=== PATIENT | male | born 1945 | race Caucasian/White ===

== ENCOUNTER → 2018-07-05 08:00 | Outpatient (CLI) | payer MEDICARE, SELFPAY | DX: Z23 Encounter for immunization (principal) | CPT/HCPCS: 90471; 90662 ==

== ENCOUNTER → 2018-10-03 11:33 | Outpatient (CLI) | payer MEDICARE, SELFPAY ==
[2018-10-03 12:44] LABS: Alanine Aminotransferase 43 IU/L (21-72); Albumin 4.5 g/dL (3.5-5.0); Albumin Globulin Ratio 1.5 (1.0-2.8); Alkaline Phosphatase 71 U/L (38-126); Aspartate Aminotransferase 33 IU/L (17-59); BUN Creatinine Ratio 27.5 (6-22); Bilirubin Total 0.5 mg/dL (0.2-1.3); Blood Urea Nitrogen 22 mg/dL (9-20); Calcium 9.4 mg/dL (8.4-10.2); Carbon Dioxide 27 mmol/L (22-32); Chloride 105 mmol/L (98-107); Cholesterol 177 mg/dL (140-199); Estimated Glomerular Filt Rate > 60.0 mL/min (>60); Glucose 104 mg/dL (80-110); HDL Cholesterol 73 mg/dL (40-60); HEMOLYSIS < 15 (0-50); LDL Cholesterol Calculated 94 mg/dL (<100); Potassium 4.6 mmol/L (3.4-5.1); Sodium 142 mmol/L (137-145); Total Protein 7.5 g/dL (6.3-8.2); Triglycerides 52 mg/dL (35-150)
[2018-10-03 12:46] LABS: Hemoglobin 15.9 g/dL (13.5-17.5); Mean Corpuscular HGB Conc 33.9 % (30-36); Mean Corpuscular Hemoglobin 31.7 PG (26-34); Mean Corpuscular Volume 93.7 fL (80-100); Platelet Count 216 X10^3/uL (150-400); Red Blood Cell Count 5.01 X10^6/uL (4.5-5.9); Red Cell Distribution Width 13.2 % (11.6-14.8); White Blood Cell Count 6.4 X10^3/uL (4.5-11.0)
[2018-10-03 12:59] LABS: Neutrophils Absolute Manual 4352 /uL (3000-5900); Total Cells Counted 100
[2018-10-03 13:00] LABS: RBC Morphology Normal Morphology
[2018-10-03 13:14] LABS: TSH w/ Reflex to FT4 1.71 uIU/mL (0.47-4.68)
== END ==
PROVIDERS: PCP Family Medicine; Visit Provider Family Medicine
DX: E78.5 Hyperlipidemia, unspecified (principal); R97.20 Elevated prostate specific antigen [PSA]
CPT/HCPCS: 36415; 80053; 80061; 84153; 84443; 85025

== ENCOUNTER → 2019-07-25 11:25 | Outpatient (CLI) | payer MEDICARE, SELFPAY | PROVIDERS: PCP Family Medicine | DX: Z23 Encounter for immunization (principal) | CPT/HCPCS: 90471; 90662 ==

== ENCOUNTER → 2019-08-29 14:44 | Outpatient (CLI) | payer MEDICARE, SELFPAY ==
--- NOTE | 2019-08-29 14:46 | DI.ECHO.S_ITS ---
[place] [facility] +---------+ : : [address] : : : : [id number] : : : : Phone: [phone]+ Echocardiogram Report + + :Name: DAKOTA SINGH Study Date: 08/29/2019 Height: 70 in : :[facility] Weight: 170 lb : : Gender: Male BSA: 1.9 m2 : :: 1945 Age: 74 yrs BP: 124/82 mmHg: :Reason For Study: AFIB : : Performed By: [facility] Staff : :Referring: LELIA BISWAS : + + Interpretation Summary Normal sinus rhythm. Normal LV size, wall thickness, wall motion and LV systolic function. EF is 60-65%. Normal chamber sizes. No significant valvular abnormalities. No prior study available for comparison. Procedure: A two-dimensional transthoracic echocardiogram with color flow and Doppler was performed. The study quality was technically good. Prior echo performed on 10/15/06. The patient was in normal sinus rhythm during the exam. Left Ventricle: The left ventricle is normal in size. There is normal left ventricular wall thickness. Left ventricular systolic function is normal. The ejection fraction is estimated to be 60-65%. Left ventricular wall motion is normal. Right Ventricle: The right ventricle is normal in size and function. Atria: The left atrial size is normal. Right atrial size is normal. The interatrial septum is intact with no evidence for an atrial septal defect. Mitral Valve: The mitral valve leaflets appear mildly thickened, but open well. There is trace mitral regurgitation. Aortic Valve: The aortic valve is trileaflet. The aortic valve opens well. No aortic regurgitation is present. Tricuspid Valve: The tricuspid valve is normal in structure and function. There is trace tricuspid regurgitation. The right ventricular systolic pressure is estimated to be at least 27 mmHg based on an estimated right atrial pressure of 3 mm Hg. Pulmonic Valve: The pulmonic valve is normal in structure and function. There is trace pulmonic regurgitation. Great Vessels: The aortic root is normal size. The ascending aorta could not be visualized. The pulmonary artery is normal size. The IVC is of normal diameter and collapses greater than 50% with a sniff. This suggests a low right atrial pressure of 3 mm Hg. Pericardium/ Pleura There is no pericardial effusion. There is no pleural effusion. MMode/2D Measurements & Calculations LVIDd: 4.7 cm LVOT diam: 2.1 cm LVIDs: 2.9 cm Ao root diam: 3.0 cm FS: 38.4 % Aortic Jxn: 3.1 cm EPSS: 0.43 cm IVSd: 1.0 cm LVPWd: 1.1 cm LV atwood. diameter/BSA (cm/m^2): 2.4 LV sys. diameter/BSA (cm/m^2): 1.5 LA A2 area: 17.4 cm2 RA long axis: 5.1 cm LA A4 area: 19.3 cm2 RA area: 12.6 cm2 LA length (vol): 4.8 cm RA vol: 26.7 ml LA vol: 58.8 ml RA : 13.7 ml/m2 LA vol index: 30.2 ml/m2 TAPSE: 2.4 cm Doppler Measurements & Calculations Ao V2 max: 119.5 cm/sec LVOT Max Tong: 95.5 cm/sec Ao V2 mean: 80.5 cm/sec LV V1 max P.7 mmHg Ao max P.7 mmHg LV V1 VTI: 22.4 cm Ao mean P.0 mmHg ANN(I,D): 3.1 cm2 Ao V2 VTI: 25.4 cm ANN(V,D): 2.8 cm2 sev ratio: 0.88 ANN indexed to BSA (cm^2/m^2): 1.6 MV E max tong: 72.5 cm/sec TR max tong: 242.8 cm/sec MV A max tong: 65.6 cm/sec TR max P.6 mmHg MV E/A: 1.1 PA V2 max: 75.0 cm/sec Med Peak E' Tong: 6.4 cm/sec PA V2 mean: 49.2 cm/sec E/E' med: 11.3 PA mean P.1 mmHg Lat Peak E' Tong: 8.2 cm/sec PA Accel Time: 0.09 sec E/E' lat: 8.8 E/e' average: 10.1 MV dec time: 0.21 sec SV(LVOT): 79.4 ml Electronically signed by: Anju Aguirre M.D. on Reading Physician:08/29/2019 06:16 PM
== END ==
PROVIDERS: PCP Family Medicine; Visit Provider Family Medicine
DX: I48.0 Paroxysmal atrial fibrillation (principal); I10 Essential (primary) hypertension
CPT/HCPCS: 93306

== ENCOUNTER → 2019-10-31 13:05 | Outpatient (CLI) | payer MEDICARE, SELFPAY ==
[2019-10-31 13:24] LABS: Add Manual Diff / Slide Review NO; Basophils Absolute Auto 0 /uL (0-100); Basophils Percent Auto 0.3 % (0-2); Eosinophils Absolute Auto 100 /uL (0-450); Eosinophils Percent Auto 1.1 % (2-4); Hematocrit 49.8 % (41-53); Hemoglobin 17.1 g/dL (13.5-17.5); Lymphocytes Absolute Auto 3000 /uL (1100-4500); Lymphocytes Percent Auto 22.4 % (25-40); Mean Corpuscular HGB Conc 34.2 % (30-36); Mean Corpuscular Volume 93.4 fL (80-100); Monocytes Absolute Auto 1400 /uL (0-900); Monocytes Percent Auto 10.5 % (3-14); Neutrophils Absolute Auto 8800 /uL (1500-7000); Neutrophils Percent Auto 65.7 % (50-75); Platelet Count 245 X10^3/uL (150-400); Red Blood Cell Count 5.33 X10^6/uL (4.5-5.9); Red Cell Distribution Width 13.8 % (11.6-14.8); White Blood Cell Count 13.4 X10^3/uL (4.5-11.0)
[2019-10-31 13:35] LABS: BUN Creatinine Ratio 32.2 (6-22); Blood Urea Nitrogen 29 mg/dL (9-20); Calcium 9.4 mg/dL (8.4-10.2); Carbon Dioxide 31 mmol/L (22-32); Chloride 99 mmol/L (98-107); Estimated Glomerular Filt Rate > 60.0 mL/min (>60); Glucose 97 mg/dL (80-110); HEMOLYSIS < 15 (0-50); Potassium 4.5 mmol/L (3.4-5.1); Sodium 138 mmol/L (137-145)
[2019-10-31 13:42] LABS: INR 3.3 (0.9-1.3); Prothrombin Time 37.7 SECONDS (10.1-12.7)
--- NOTE | 2019-10-31 13:54 | DI.CT.S_ITS ---
PROCEDURE: CT ANGIO CHEST INDICATIONS: Atrial fibrilliation/pre procedure exam for PVI TECHNIQUE: After the administration of intravenous contrast, 3 mm thick sections acquired from the pulmonary apices to the posterior costophrenic angles. 3-dimensional maximum intensity projection (MIP) coronal reformats were then acquired parallel to the pulmonary veins. For radiation dose reduction, the following was used: automated exposure control, adjustment of mA and/or kV according to patient size. COMPARISON: None. FINDINGS: Image quality: Excellent. Pulmonary veins: 4 total pulmonary veins are identified. * Right superior pulmonary vein: 1.5 cm diameter, 2.4 cm from ostium to 1st order branch. * Right inferior pulmonary vein: 1.2 cm diameter, 2.9 cm from ostium to 1st order branch. * Left superior pulmonary vein: 2.1 cm diameter, 3.8 cm from ostium to 1st order branch. * Left inferior pulmonary vein: 1.2 cm diameter, 2.9 cm from ostium to 1st order branch. * Supernumerary pulmonary veins: none. Lungs and pleura: Lungs are clear. No pleural effusions or pneumothorax. Central and peripheral airways are patent. Mediastinum: Heart size is normal, without pericardial effusion. No mediastinal or hilar adenopathy. Thoracic aorta and pulmonary arteries are normal in caliber and enhancement. Esophagus is normal in caliber, without hiatal hernia. Bones and chest wall: No suspicious bony lesions. Ribs and thoracic spine appear intact throughout. No axillary or supraclavicular adenopathy. Thyroid gland appears normal where well seen. Abdomen: Visualized upper abdominal solid organs appear normal in the early arterial phase of enhancement. IMPRESSION: Appears normal Dictated by: Donny Valle M.D. on 10/31/2019 at 15:11 Approved by: Donny Valle M.D. on 10/31/2019 at 15:33
== END ==
PROVIDERS: PCP Family Medicine; Referring Provider Family Medicine; Visit Provider Family Medicine
DX: Z01.818 Encounter for other preprocedural examination (principal); Z01.812 Encounter for preprocedural laboratory examination; I48.0 Paroxysmal atrial fibrillation
CPT/HCPCS: 71275; 80048; 85025; 85610; Q9967

== ENCOUNTER → 2020-07-09 07:40 | Outpatient (CLI) | payer MEDICARE, SELFPAY | PROVIDERS: PCP Family Medicine; Referring Provider Internal Medicine; Visit Provider Internal Medicine | DX: Z23 Encounter for immunization (principal) | CPT/HCPCS: 90471; 90662 ==

== ENCOUNTER → 2021-02-25 13:32 | Outpatient (CLI) | payer MEDICARE, SELFPAY ==
[2021-02-25 13:54] LABS: COVID19 -Nasal RAPID Negative (Negative)
== END ==
PROVIDERS: PCP Family Medicine; Visit Provider Physician Assistant
DX: Z20.822 Contact with and (suspected) exposure to COVID-19 (principal)
CPT/HCPCS: 87635

== ENCOUNTER 2021-02-26 11:26 | Day surgery (SDC) | payer MEDICARE, SELFPAY ==
--- NOTE | 2021-02-26 | PATH_ITS ---
[facility] Accession Number: [id number] . 01 Material submitted: . PART A: cecum - CECAL POLYP X2 PART B: colon - ASCENDING COLON POLYP X2 . 02 Diagnosis: A. Cecum, Polyp x2, Biopsy: Tubular adenomas. . B. Ascending Colon, Polyp x2, Biopsy: Tubular adenoma in one of multiple fragments. Inflammatory polyp in one fragment. Additional levels were examined. [facility] 03/04/2021 1641 Local . 02 Electronically signed: . Hilda Ceja MD, Pathologist NPI- [id number] . 01 Gross description: . Part A: CECAL POLYP X2: Received in formalin are 3 fragment(s) of galan, soft tissue measuring 0.4 x 0.3 x 0.2 cm to 0.3 x 0.2 x 0.2 cm submitted entirely in 1 cassette(s) Part B: ASCENDING COLON POLYP X2: Received in formalin are multiple fragment(s) of galan, soft tissue measuring 0.8 x 0.8 x 0.2 cm in aggregate submitted entirely in 1 cassette(s) /ANN 02/27/2021 0817 Local . 02 Pathologist provided ICD-10: D12.0, D12.2 . 02 CPT . 622927, [id number] Performed at: 01 [facility] [address], [place], [place] [id number] MD Roderick Couch MD Phone: [phone] Performed at: 02 [facility] [address] [place], [place] [id number] MD Hilda Ceja MD Phone: [phone]
[2021-02-26 11:54] VITALS: BP 156/78; PULSE 69; RESP 14; TEMP 36.4; O2SAT 100; BMI 23.6
[2021-02-26] MEDS: LACTATED RINGERS 1,000 ML 200 ML IV (11:54)
--- NOTE | 2021-02-26 13:24 | P.HP_ITS ---
History of Present Illness History of Present Illness Chief [place] [facility] Patient History Surgical History (Updated 02/26/21 @ 11:47 by Hilda Laird RN) Status post ablation of atrial fibrillation Family & Social History Social History: household members spouse Tobacco & Substance use: Smoking Status Never smoker alcohol intake current alcohol intake frequency 0-2 drinks per day Substance Use Type does not use Meds Home Medications and Allergies Home Medications Medication Instructions Recorded Confirmed Type warfarin 4 mg tablet 4 mg PO DAILY PRN #60 tab 11/10/19 02/26/21 Rx atorvastatin 40 mg tablet 40 mg PO HS #90 tab 06/24/20 02/26/21 Rx warfarin 5 mg tablet 5 mg PO DAILY #180 tab 07/16/20 02/26/21 Rx acyclovir 400 mg tablet 400 mg PO DAILY #90 tab 12/23/20 02/26/21 Rx atenolol 50 mg PO DAILY 02/26/21 02/26/21 History Allergies Allergy/AdvReac Type Severity Reaction Status Date / Time No Known Drug Allergies Allergy Verified 02/26/21 11:47 Review of Systems Review of Systems ROS: Yes All systems reviewed with the patient and are negative except as othe rwise documented Exam Vital Signs (past 8 hours): - 02/26/21 11:54 Temperature 97.5 F L Pulse Rate 69 Respiratory Rate 14 Blood Pressure 156/78 H Pulse Oximetry 100 Oxygen Delivery Method Room Air Narrative Exam Narrative: Awake alert and oriented x3, pupils equal round reactive to light, oropharynx clear, extremities without edema, no gross neurologic deficits noted Assessment & Plan Assessment & Plan narrative: Personal history of colon polyps per colonoscopy COVID-19 COVID-19 status: Negative
[2021-02-26] MEDS: MIDAZOLAM 5 MG/5 ML VIAL IV (13:30)
[2021-02-26] MEDS: fentaNYL 250 MCG/5 ML INJ IV (13:30)
--- NOTE | 2021-02-26 13:50 | P.OP.ENDO_ITS ---
Operative Date/Time/Diagnoses Date of procedure: 02/26/21 Procedure & Clinicians Study performed: Colonoscopy with cold forceps and cold snare polypectomy Moderate conscious sedation was administered by the endoscopy nurse and supervised by the endoscopist. The following parameters were monitored: Oxygen saturation, heart rate, blood pressure, and response to care. 4 mg of midazolam and 100 mcg of fentanyl given Same procedure as scheduled: Yes Indications: Personal history of colon polyps. Colon cancer screening. Last colonoscopy was in 2014 Procedure Notes Procedure in detail: Prior to the procedure, history and physical was performed, and patient medications and allergies were reviewed. Preprocedure nursing history and assessment was reviewed. Patient identification and proposed procedure were verified by the physician and nurse in the procedure room. The physical status of the patient was reassessed after the procedure. After informed consent was obtained including risks, benefits, and alternatives, the scope was passed under direct vision. Throughout the procedure, the patient's blood pressure, pulse, and oxygen saturations were monitored continuously. The colonoscope was introduced through the anus and advanced to the cecum as identified by the appendiceal orifice and ileocecal valve. The patient tolerat ed the procedure well. Bowel prep was deemed adequate to detect polyps greater than 5 mm. Digital rectal examination and perianal examinations were unremarkable. Retroflexion in the rectum was unrevealing. Many medium mouthed diverticula were noted throughout the entire colon. Two sessile polyps measuring 2 mm were removed from the cecum a cold forceps and retrieved One 3 mm sessile polyp was removed from the ascending colon with a cold forceps and retrieved One 6 mm sessile polyp was removed from ascending colon with a cold snare and retrieved Impression: Pancolonic diverticulosis Two 2 mm polyps removed from the cecum A 3 mm and a 6 mm polyp removed from the ascending colon Sedation minutes: 18 Complications: other (EBL minimal. No complications) Post-procedure Plan for aftercare: Follow-up pathology results Repeat colonoscopy at a date to be determined based on pathology results Resume home medications. Resume Coumadin tomorrow High-fiber diet Patient has a contact number available for emergencies. The signs and symptoms of potential delayed complications were discussed with the patient. Return to normal activities tomorrow. Written discharge instructions were provided to the patient. Discharge home with escort
[2021-02-26 13:55] VITALS: BP 125/78; PULSE 66; RESP 16; TEMP 36.4; O2SAT 100
[2021-02-26 13:58] VITALS: BP 128/82; PULSE 83; RESP 16; O2SAT 96
[2021-02-26 14:02] VITALS: BP 130/84; PULSE 69; RESP 16; TEMP 36.4; O2SAT 96
[2021-02-26 14:40] VITALS: BP 120/75; PULSE 60; RESP 16; TEMP 36.4; O2SAT 97
== END 2021-02-26 14:43 | disposition home or self-care (01) ==
PROVIDERS: PCP Family Medicine; Referring Provider Internal Medicine; Visit Provider Internal Medicine
PROC: 0DJD8ZZ Inspection of Lower Intestinal Tract, Via Natural or Artificial Opening Endoscopic (ICD-10-PCS; CPT 45378; principal; 2021-02-26 12:30)
DX: Z12.11 Encounter for screening for malignant neoplasm of colon (principal); Z86.010 Personal history of colon polyps; Z79.01 Long term (current) use of anticoagulants; K57.30 Diverticulosis of large intestine without perforation or abscess without bleeding; D12.0 Benign neoplasm of cecum; D12.2 Benign neoplasm of ascending colon
CPT/HCPCS: 45385; 45380; J2250; J3010

== ENCOUNTER → 2022-08-05 13:46 | Outpatient (CLI) | payer MEDICARE, SELFPAY ==
--- NOTE | 2022-08-19 08:42 | PM.CARDMON.1 ---
[employer] Report Referral & Results Date Patient Seen: 08/05/22 Requesting provider: John Meza Indication: Paroxysmal atrial fibrillation Duration of monitoring (days): 7 Diary information: There were no patient events to review Data: Minimum heart rate identified was 54 beats per minute at 10:37 on 08/11/2022 Maximum sinus heart rate was 107 beats per minute at 12:26 on 08/12/2022 Maximum overall heart rate was 190 beats per minute at 13:58 on 08/06/2022 during a 5 beat run of ventricular tachycardia Less than 1% of identified beats were supraventricular ectopic in origin which would classify them as rare Approximately 11.5% of identified beats were ventricular ectopic in origin which would classify them as frequent. This included runs of ventricular bigeminy and ventricular trigeminy were approximately 1 and 1/2 minutes each There were 15 runs of SVT identified with the fastest being 6 beat run at a rate of 182 beats per minute, the longest lasting 10.4 seconds There were 2 runs of nonsustained ventricular tachycardia with the fastest being the 5 beat run above, the longest lasting 11 beats at a rate of 115 beats per minute which suggest possible supraventricular origin rather than true VT There were no episodes of atrial fibrillation identified on this study There were no pauses of 3 seconds or longer identified on this study Impression: 6+ day site monitor demonstrating frequent PVCs as above. No episodes of atrial fibrillation identified Clinical correlation suggested
== END ==
PROVIDERS: PCP Family Medicine; Referring Provider Family Medicine; Visit Provider Family Medicine
DX: I48.0 Paroxysmal atrial fibrillation (principal); I49.9 Cardiac arrhythmia, unspecified
CPT/HCPCS: 93242; 93244

== ENCOUNTER → 2022-08-07 09:27 | Outpatient (CLI) | payer MEDICARE, SELFPAY ==
[2022-08-07 11:21] LABS: Add Manual Diff / Slide Review NO; Basophils Absolute Auto 0 /uL (0-100); Basophils Percent Auto 0.6 % (0-2); Eosinophils Absolute Auto 200 /uL (0-450); Eosinophils Percent Auto 3.7 % (2-4); Hematocrit 42.5 % (41-53); Hemoglobin 14.8 g/dL (13.5-17.5); Lymphocytes Absolute Auto 1400 /uL (1100-4500); Lymphocytes Percent Auto 26.5 % (25-40); Mean Corpuscular HGB Conc 34.7 % (30-36); Mean Corpuscular Hemoglobin 32.4 PG (26-34); Mean Corpuscular Volume 93.2 fL (80-100); Monocytes Absolute Auto 700 /uL (0-900); Monocytes Percent Auto 13.4 % (3-14); Neutrophils Absolute Auto 3000 /uL (1500-7000); Neutrophils Percent Auto 55.8 % (50-75); Platelet Count 173 X10^3/uL (150-400); Red Blood Cell Count 4.56 X10^6/uL (4.5-5.9); Red Cell Distribution Width 13.5 % (11.6-14.8); White Blood Cell Count 5.3 X10^3/uL (4.5-11.0)
[2022-08-07 11:50] LABS: Alanine Aminotransferase 32 IU/L (<50); Albumin 3.8 g/dL (3.5-5.0); Albumin Globulin Ratio 1.5 (1.0-2.8); Alkaline Phosphatase 69 U/L (38-126); Aspartate Aminotransferase 26 IU/L (17-59); BUN Creatinine Ratio 20.6 (6-22); Bilirubin Total 0.8 mg/dL (0.2-1.3); Blood Urea Nitrogen 20 mg/dL (9-20); Calcium 8.9 mg/dL (8.4-10.2); Carbon Dioxide 29 mmol/L (22-32); Chloride 104 mmol/L (98-107); Cholesterol 141 mg/dL (140-199); Estimated Glomerular Filt Rate > 60 mL/min (>60); Globulin 2.6 g/dL (1.7-4.1); Glucose 95 mg/dL (80-110); HDL Cholesterol 45 mg/dL (40-60); HEMOLYSIS < 15 (0-50); LDL Cholesterol Calculated 81 mg/dL (<100); Potassium 4.4 mmol/L (3.4-5.1); Sodium 139 mmol/L (137-145); Total Protein 6.4 g/dL (6.3-8.2); Triglycerides 73 mg/dL (35-150)
[2022-08-07 12:11] LABS: TSH w/ Reflex to FT4 2.81 uIU/mL (0.47-4.68)
== END ==
PROVIDERS: PCP Family Medicine; Referring Provider Family Medicine; Visit Provider Family Medicine
DX: E78.2 Mixed hyperlipidemia (principal); I48.0 Paroxysmal atrial fibrillation
CPT/HCPCS: 36415; 80053; 80061; 84443; 85025

== ENCOUNTER 2023-05-18 14:44 | Emergency (ER) | payer MEDICARE, SELFPAY ==
[2023-05-18 14:54] VITALS: PULSE 56; RESP 16; TEMP 36.2; O2SAT 99; BMI 22.9
--- NOTE | 2023-05-18 14:59 | DI.RAD.S_ITS ---
PROCEDURE: XR HAND LT MIN 3V INDICATIONS: fall, laceration between 4/5th digit TECHNIQUE: 3 views of the hand(s) acquired. COMPARISON: None. FINDINGS: Bones: No fractures or dislocations. Carpal bones are normally aligned. No suspicious bony lesions. Soft tissues: No suspicious soft tissue calcifications. Punctate radiodensities are noted overlying the soft tissues between the 4th and 5th proximal phalanx. IMPRESSION: Radiodensities overlying soft tissues between the 4th and fix phalanx. If this is region of laceration, radiopaque foreign body should be considered. Dictated by: Danelle Phillips M.D. on 05/18/2023 at 16:02 Approved by: Danelle Phillips M.D. on 05/18/2023 at 16:02
[2023-05-18] MEDS: TET,DIPH,PERTUSS(ACELL),VAC/PF 0.5 ML SYRINGE IM (15:48)
--- NOTE | 2023-05-18 16:19 | ED_ITS ---
HPI - Wound/Laceration <Magno Messer PA-C - Last Filed: 05/18/23 16:31> General Chief Complaint: Wound/Laceration Stated Complaint: Fall t-1, Hand inj Time Seen by Provider: 05/18/23 15:23 Source: patient Mode of arrival: Ambulatory History of Present Illness HPI narrative: 77-year-old male with past medical history intermittent atrial fibrillation, factor 5 Leiden, hyperlipidemia, on Coumadin presents to the ED status post a left hand injury sustained yesterday evening. Patient states that he sustained a mechanical trip and fall when he was [place], sustained a laceration to the webbing between digits 4 and 5 of his left hand, some bruising and pain of the 5th digit. Patient denies numbness, tingling, weakness. There is full range of motion. Last tetanus is unknown. Related Data Previous Rx's Medication Instructions Recorded metoprolol succinate 50 mg 50 mg PO DAILY #90 tabs 08/10/22 tablet,extended release 24 hr warfarin 5 mg tablet See Rx Instructions .Route 08/12/22 .COMPLEX #180 tabs lisinopril 20 mg tablet 20 mg PO DAILY #90 tabs 09/02/22 lisinopril 20 1 tab PO DAILY #90 tabs 10/01/22 mg-hydrochlorothiazide 25 mg tablet acyclovir 400 mg tablet 400 mg PO DAILY #90 tabs 10/26/22 atorvastatin 40 mg tablet 40 mg PO HS #90 tabs 10/26/22 warfarin 4 mg tablet 4 mg PO DAILY PRN atrial 10/26/22 fibrillation #60 tabs Allergies Allergy/AdvReac Type Severity Reaction Status Date / Time No Known Drug Allergies Allergy Verified 05/18/23 14:58 Review of Systems <Magno Messer PA-C - Last Filed: 05/18/23 16:31> Review of Systems ROS Unobtainable: All systems reviewed & are unremarkable except as noted in HPI and below Constitutional Constitutional: Denies chills, Denies fatigue, Denies fever(s), Denies frequent falls, Denies lethargy and Denies weakness Eyes Eyes: Denies change in vision, Denies eye discharge, Denies irritation and Denies loss of vision ENT Ears, Nose, Mouth, and Throat: Denies change in voice, Denies dizziness, Denies neck pain, Denies sore throat and Denies throat swelling Cardiovascular Cardiovascular: Denies chest pain, Denies irregular heart rhythm, Denies lightheadedness, Denies palpitations, Denies dyspnea, Denies dyspnea on exertion and Denies orthopnea Respiratory Respiratory: Denies cough, Denies dyspnea, Denies dyspnea on exertion and Denies wheezing Gastrointestinal Gastrointestinal: Denies abdominal pain, Denies change in bowel habits, Denies diarrhea, Denies nausea and Denies vomiting Genitourinary Genitourinary: Denies hematuria, Denies flank pain, Denies urinary incontinence and Denies urinary urgency Musculoskeletal Musculoskeletal: Denies back pain, Denies muscle weakness, Denies neck pain, Denies numbness and Denies tingling Comments: Pain to the 5th digit of the left hand Integumentary/Breasts Skin/Breast: Denies pruritus, Denies erythema, Denies rash and Denies wounds Comments: Small laceration to the webbing between 4th and 5th digit of the left hand. Neurologic Neurologic: Denies behavioral changes, Denies confusion, Denies dizziness, Denies frequent falls, Denies loss of vision, Denies numbness, Denies tingling and Denies weakness Psychiatric Psychiatric: Denies anxiety, Denies behavioral changes, Denies confusion, Denies depression, Denies homicidal ideation and Denies suicidal ideation Endocrine Endocrine: Denies fatigue, Denies flushing and Denies palpitations Hematologic/Lymphatic Hematologic/Lymphatic: Denies easy bruising Allergic/Immunologic Allergic/Immunologic: Denies urticaria, Denies throat swelling and Denies wheezing Patient History <Magno Messer PA-C - Last Filed: 05/18/23 16:31> Medical History Factor 5 Leiden mutation, heterozygous Intermittent atrial fibrillation Surgical History H/O left inguinal hernia repair Status post ablation of atrial fibrillation Social History marital status: household members: spouse lives independently: Yes occupational status: previously employed Smoking Status: Never smoker alcohol intake: current substance use type: does not use Smoking Status: Never smoker alcohol intake frequency: 0-2 drinks per day Substance Use Type: does not use Exam <Magno Messer PA-C - Last Filed: 05/18/23 16:31> Narrative Exam Narrative: Const General:?cooperative, healthy appearing and comfortable [facility] Head:?normal to inspection Ears:?hearing grossly normal bilaterally Nose:?external nose normal Face and sinus:?normal facial exam and sinuses nontender Mouth:?oral mucosae normal Throat:?posterior oropharynx normal Eyes General:?appearance normal, both eyes and all related structures Neck Neck:?normal visual inspection and no lymphadenopathy noted Resp Effort & Inspection:?normal respiratory effort Auscultation:?clear to auscultation bilaterally Cardio Rate:?regular rate Rhythm:?regular rhythm Integumentary There is a small 1/2 inch laceration to the webbing between the 4th and 5th fingers of the left hand. Bleeding is well controlled. No overt signs of infection. There is some debris from [place] in the wound, which was washed out in the ED. Musculoskeletal There is some bruising to the 5th digit of the left hand. There is full range of motion. Strength and sensation is intact. Patient is neurovascularly intact. Neuro General:?patient alert, patient awake and patient oriented x3 Initial Vital Signs Initial Vital Signs: Vital Signs Temperature 97.2 F L 05/18/23 14:54 Pulse Rate 56 L 05/18/23 14:54 Respiratory Rate 16 05/18/23 14:54 Pulse Oximetry 99 05/18/23 14:54 Oxygen Delivery Method Room Air 05/18/23 14:54 <Kimber Tobias DO - Last Filed: 05/25/23 22:06> Initial Vital Signs Initial Vital Signs: Vital Signs Temperature 97.2 F L 05/18/23 14:54 Pulse Rate 56 L 05/18/23 14:54 Respiratory Rate 16 05/18/23 14:54 Pulse Oximetry 99 05/18/23 14:54 Oxygen Delivery Method Room Air 05/18/23 14:54 Course <Magno Messer PA-C - Last Filed: 05/18/23 16:31> Orders Ordered: Discontinued Medications Diphtheria/Tetanus/Acell Pertussis (Tet,Diph,Pertuss(Acell),Vac/Pf 0.5 Ml Syringe) 0.5 ml IM .ONCE ONE Stop: 05/18/23 15:07 Last Admin: 05/18/23 15:48 Dose: 0.5 ml Documented By: LASHON Vital Signs Vital signs: Vital Signs - 8 hr 05/18/23 14:54 Temperature 97.2 F L Pulse Rate 56 L Respiratory Rate 16 Pulse Oximetry 99 Oxygen Delivery Method Room Air <Kimber Tobias DO - Last Filed: 05/25/23 22:06> Orders Ordered: Discontinued Medications Diphtheria/Tetanus/Acell Pertussis (Tet,Diph,Pertuss(Acell),Vac/Pf 0.5 Ml Syringe) 0.5 ml IM .ONCE ONE Stop: 05/18/23 15:07 Last Admin: 05/18/23 15:48 Dose: 0.5 ml Documented By: LASHON Vital Signs Vital signs: Vital Signs - 8 hr 05/18/23 14:54 Temperature 97.2 F L Pulse Rate 56 L Respiratory Rate 16 Pulse Oximetry 99 Oxygen Delivery Method Room Air MDM - Wound/Laceration <Magno Messer PA-C - Last Filed: 05/18/23 16:31> MDM Narrative Medical decision making narrative: 77-year-old male with past medical history intermittent atrial fibrillation, factor 5 Leiden, hyperlipidemia, on Coumadin presents to the ED status post a left hand injury sustained yesterday evening. Concern for laceration versus fracture/dislocation versus musculoskeletal sprain/strain. Will update tetanus. Will obtain x-ray. Will reassess. X-ray without fractures or dislocations. Given that the injury is well past the 12 hour kourtney, no repair indicated at this time. The wound was well irrigated, given there was still debris from the beach in the wound. Wound does not currently show any signs of infection. Wound care instructions, infection prevention instructions discussed with patient. ED return precautions discussed with patient. Patient verbalized understanding. Medical records reviewed: yes Discharge Plan Departure Patient Disposition: Home Clinical Impression: Laceration Instructions: Skin Wound Activity Restrictions/Additional Instructions: You were evaluated in the ED today for a left hand injury. You have a laceration in the webbing between your 4th and 5th digit. However, since it has been over 12 hours since you had the injury, closure of the wound with suture is not indicated at this time, to minimize the risk of of infection. Your tetanus was updated today. Please keep the wound clean and dry. Please watch for any signs of infections including worsening redness, swelling, discharge, pain, warmth. Please return to the ED if you note any signs of infection. Your x- rays came back with no findings of fractures or dislocations. You may continue to keep your fingers bea taped for comfort and healing. Please follow-up with your PCP. Prescriptions: No Action metoprolol succinate 50 mg tablet extended release 24 hr 50 mg PO DAILY Qty: 90 3RF warfarin 5 mg tablet See Rx Instructions .ROUTE .COMPLEX Qty: 180 0RF Dose Instruction: TAKE ONE TABLET BY MOUTH ONE TIME DAILY Rx Instructions: TAKE ONE TABLET BY MOUTH ONE TIME DAILY lisinopril 20 mg tablet 20 mg PO DAILY Qty: 90 3RF lisinopril-hydrochlorothiazide 20-25 mg tablet 1 tab PO DAILY Qty: 90 3RF warfarin 4 mg tablet 4 mg PO DAILY PRN (Reason: atrial fibrillation) Qty: 60 0RF Rx Instructions: Take one by mouth if needed to alternate with the 5mg tablet per PT/INR management. acyclovir 400 mg tablet 400 mg PO DAILY Qty: 90 3RF atorvastatin 40 mg tablet 40 mg PO HS Qty: 90 3RF Referrals: John Meza MD [Primary Care Provider] - Stand Alone Forms: Patient Portal/API <Kimber Tobias DO - Last Filed: 05/25/23 22:06> [facility] ED Attending Morganature Attestation: I was immediately available in the department for consultation. Documentation has been reviewed.
[2023-05-18 16:22] VITALS: BP 133/80; PULSE 80; RESP 18; O2SAT 99
== END 2023-05-18 16:23 | disposition home or self-care (01) ==
PROVIDERS: Emergency Provider Student in an Organized Health Care Education/Training Program; PCP Family Medicine
DX: S61.422A Laceration with foreign body of left hand, initial encounter (principal); W01.0XXA Fall on same level from slipping, tripping and stumbling without subsequent striking against object, initial encounter; Y93.01 Activity, walking, marching and hiking; Y92.832 Beach as the place of occurrence of the external cause; Z23 Encounter for immunization
CPT/HCPCS: 73130; 90471; 99283; 90715

== ENCOUNTER → 2023-06-17 10:46 | Outpatient (CLI) | payer MEDICARE, SELFPAY ==
[2023-06-17 11:35] LABS: Add Manual Diff / Slide Review NO; Basophils Absolute Auto 0 /uL (0-100); Basophils Percent Auto 0.7 % (0-2); Eosinophils Absolute Auto 200 /uL (0-450); Eosinophils Percent Auto 2.9 % (2-4); Hematocrit 41.6 % (41-53); Hemoglobin 14.4 g/dL (13.5-17.5); Lymphocytes Absolute Auto 1600 /uL (1100-4500); Lymphocytes Percent Auto 25.3 % (25-40); Mean Corpuscular HGB Conc 34.6 % (30-36); Mean Corpuscular Hemoglobin 32.5 PG (26-34); Mean Corpuscular Volume 94.1 fL (80-100); Monocytes Absolute Auto 600 /uL (0-900); Monocytes Percent Auto 8.7 % (3-14); Neutrophils Absolute Auto 3900 /uL (1500-7000); Neutrophils Percent Auto 62.4 % (50-75); Platelet Count 195 X10^3/uL (150-400); Red Blood Cell Count 4.42 X10^6/uL (4.5-5.9); Red Cell Distribution Width 13.6 % (11.6-14.8); White Blood Cell Count 6.3 X10^3/uL (4.5-11.0)
[2023-06-17 11:49] LABS: Alanine Aminotransferase 41 IU/L (<50); Albumin 4.3 g/dL (3.5-5.0); Albumin Globulin Ratio 1.5 (1.0-2.8); Alkaline Phosphatase 62 U/L (38-126); Aspartate Aminotransferase 34 IU/L (17-59); BUN Creatinine Ratio 18.1 (6-22); Bilirubin Total 0.9 mg/dL (0.2-1.3); Blood Urea Nitrogen 17 mg/dL (9-20); Calcium 9.8 mg/dL (8.4-10.2); Carbon Dioxide 31 mmol/L (22-32); Chloride 102 mmol/L (98-107); Cholesterol 170 mg/dL (140-199); Estimated Glomerular Filt Rate > 60 mL/min (>60); Globulin 2.8 g/dL (1.7-4.1); Glucose 112 mg/dL (80-110); HDL Cholesterol 63 mg/dL (40-60); HEMOLYSIS < 15 (0-50); LDL Cholesterol Calculated 84 mg/dL (<100); Potassium 4.8 mmol/L (3.4-5.1); Sodium 138 mmol/L (137-145); Total Protein 7.1 g/dL (6.3-8.2); Triglycerides 113 mg/dL (35-150)
[2023-06-17 12:59] LABS: TSH w/ Reflex to FT4 1.76 uIU/mL (0.47-4.68)
== END ==
PROVIDERS: PCP Family Medicine; Referring Provider Family Medicine; Visit Provider Family Medicine
DX: D68.51 Activated protein C resistance (principal); E78.2 Mixed hyperlipidemia; I48.0 Paroxysmal atrial fibrillation
CPT/HCPCS: 36415; 80053; 80061; 84443; 85025

== ENCOUNTER 2023-10-06 06:44 | Day surgery (SDC) | payer MEDICARE, SELFPAY ==
[2023-08-26 15:17] VITALS: BMI 23.6
--- NOTE | 2023-10-05 09:23 | P.HP_ITS ---
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 PMH. 1. History of DVT 2. Factor 5 Leiden on warfarin 3. History of atrial fibrillation now status post ablation No interval change in health [facility] Medical History (Updated 08/26/23 @ 15:22 by Mandie Payne RN) History of blood clots Arthritis Enlarged prostate Atrial fibrillation HTN (hypertension) Diverticulosis Factor 5 Leiden mutation, heterozygous Intermittent atrial fibrillation Surgical History (Updated 08/26/23 @ 15:25 by Mandie Payne RN) History of radiofrequency ablation procedure for cardiac arrhythmia S/P right unicompartmental knee replacement (~2005) Hx of transurethral resection of prostate (~1993) History of open reduction and internal fixation (ORIF) procedure (~1984) History of open reduction and internal fixation (ORIF) procedure (~1982) History of tonsillectomy and adenoidectomy H/O left inguinal hernia repair (~2000) Status post ablation of atrial fibrillation Social History marital status: household members: spouse lives independently: Yes occupational status: previously employed Smoking Status: Never smoker alcohol intake: current substance use type: does not use Meds Home Medications and Allergies Home Medications Medication Instructions Recorded Confirmed Type acyclovir 400 mg tablet 400 mg PO DAILY #90 tabs 06/17/23 10/06/23 Rx atorvastatin 40 mg tablet 40 mg PO HS #90 tabs 06/17/23 10/06/23 Rx lisinopril 20 1 tab PO DAILY #90 tabs 06/17/23 10/06/23 Rx mg-hydrochlorothiazide 25 mg tablet metoprolol succinate 50 mg 50 mg PO DAILY #90 tabs 06/17/23 10/06/23 Rx tablet,extended release 24 hr warfarin 4 mg tablet 4 mg PO DAILY PRN atrial 06/17/23 10/06/23 Rx fibrillation #60 tabs warfarin 5 mg tablet See Rx Instructions .Route 06/17/23 10/06/23 Rx .COMPLEX #180 tabs epinephrine 0.3 mg/0.3 mL 0.3 mg (0.3 mL) IM ONCE #2 ea 07/15/23 10/06/23 Rx injection, auto-injector (EpiPen 2-Dilshad) Allergies Allergy/AdvReac Type Severity Reaction Status Date / Time No Known Drug Allergies Allergy Verified 10/06/23 07:33 Exam Narrative Exam Narrative: Gen-Adult man alert and oriented Abdomen-Soft right inguinal hernia site marked with my initials Assessment & Plan Assessment and plan (1) Right inguinal hernia: Status: Acute Assessment & Plan narrative: 78 y.o man PMH Factor 5 Liden on Warfarin here for elective right inguinal hernia repair. Overview of operation again discussed including risks and benefits and he elects to proceed. Questions answered and he provides written consent to proceed. Open right inguinal hernia repair
[2023-10-06] VITALS (7 sets, daily range): BP systolic 106–138; BP diastolic 51–88; PULSE 63–66; RESP 12–16; TEMP 36.2–36.5; O2SAT 96–99; BMI 23.6
[2023-10-06] MEDS: LACTATED RINGERS 1,000 ML 21 ML IV (07:29)
[2023-10-06] MEDS: CEFAZOLIN 2 GM/100 ML PREMIX 100 ML IV (08:15)
--- NOTE | 2023-10-06 08:28 | SUR.OPER ---
Supine on padded OR bed, head on pillow, arms secured on padded arm boards at <90 degrees abduction, legs uncrossed, safety belt at thigh, tape over blanket over lower legs.
[2023-10-06] MEDS: BUPIVACAINE 0.25% (PF) VIAL 30 ML INJ (08:33)
--- NOTE | 2023-10-06 09:38 | P.OP_ITS ---
Operative Date/Time/Diagnoses Date of procedure: 10/06/23 Time of procedure: 09:38 Pre-op diagnosis: Right inguinal hernia Post-op diagnosis: same Procedure & Clinicians Procedure: Open repair of right inguinal Same procedure as scheduled: Yes Indications: 78-year-old man with a symptomatic reducible right inguinal hernia here for elective repair Surgeon: Jerzy Montenegro Anesthesia Type: General Operative Notes Findings: Moderate size indirect hernia defect. No direct floor defect. Estimated Blood Loss (mL): 10 Procedure in detail: The patient was placed supine on the table and bilateral lower extremity compression devices were applied. Anesthesia was induced they were intubated with an LMA and received Ancef. A time-out was performed. They were prepped and draped in sterile fashion. The right external inguinal ring and the anterior superior iliac crest were identified and marked. 1 finger breath above the inguinal ligament the skin was infiltrated with 0.25% bupivacaine. The skin incision was made, the subcutaneous tissues were divided with electrocautery exposing the external oblique aponeurosis which was then opened along the direction of its fibers. Using blunt dissection the internal oblique aporneurosis was from the external oblique upper leaflet. The cord was carefully dissected away from the inguinal canal adjacent to the pubic tubercle. The cord including the vas deferens, testicular bloody supply, ilioguinal and genital nerve were encircled with a Aurora drain. No direct floor defect was observed. The cremasteric fibers surrounding the cord were divided adjacent to the internal ring. The vas deferens and the testicular vessels were preserved and protected. The cord contents were carefully explored. There was a moderate-sized indirect hernia on the anterior medial aspect of the cord which was skeletonized away from the vas deferens and testicular blood supply. The indirect hernia was skeletonized back to the internal ring and reduced spontaneously into the abdomen. Given the moderate diameter of the internal ring a plug of mesh was placed into the internal ring and secured to the adjacent fascia. A 7x 15 cm lightweight Bard Pro Loop hernia mesh was anchored to the insertion of the rectus muscle at the pubic tubercle such that there was approximately 2 cm of tubercle overlap with Ethibond. The inferior edge of the mesh was secured to the shelving edge of the inguinal ligament using Ethibond. Interrupted 3 0 Vicryl suture was used to anchor the superior aspect of the mesh to the conjoined tendon in several places. The tails were then reapproximated loosely around the spermatic cord. The tails of the mesh were then tucked under the external oblique aponeurosis. The repair was checked for hemostasis. The wound was irrigated with sterile saline. The external oblique aponeurosis was reapproximated in a running fashion using 3 0 Vicryl. The subcutaneous tissues were reapproximated with 3 0 Vicryl skin closed with 4 0 Monocryl followed by the application of Dermabond. At the end of the operation I ensured that both testicles were within the scrotum. The sp onge instrument count at the end operation was correct. The patient emerged from anesthesia was extubated and transferred to the postoperative care unit in stable condition. A total of 30 ml of of 0.25% bupivicaine was used to infiltrate the skin. Complications: none Post-operative Condition: stable Disposition: same day surgery
[2023-10-06] MEDS: OXYCODONE IR 5 MG TABLET PO (10:07)
== END 2023-10-06 10:10 | disposition home or self-care (01) ==
PROVIDERS: PCP Family Medicine; Referring Provider Surgery; Visit Provider Surgery
PROC: (CPT 49505; principal; 2023-10-06 07:45)
DX: K40.90 Unilateral inguinal hernia, without obstruction or gangrene, not specified as recurrent (principal)
CPT/HCPCS: 49505; 82962; 85610; J0690; J1885; J2405; J2704; J3010

== ENCOUNTER → 2024-06-01 12:18 | Outpatient (CLI) | payer MEDICARE, SELFPAY ==
[2024-06-01 13:17] LABS: Add Manual Diff / Slide Review NO; Basophils Absolute Auto 100 /uL (0-100); Basophils Percent Auto 0.8 % (0-2); Eosinophils Absolute Auto 200 /uL (0-450); Eosinophils Percent Auto 2.7 % (2-4); Hematocrit 41.7 % (41-53); Hemoglobin 14.4 g/dL (13.5-17.5); Lymphocytes Absolute Auto 1800 /uL (1100-4500); Lymphocytes Percent Auto 25.7 % (25-40); Mean Corpuscular HGB Conc 34.6 % (30-36); Mean Corpuscular Hemoglobin 32.7 PG (26-34); Mean Corpuscular Volume 94.4 fL (80-100); Monocytes Absolute Auto 600 /uL (0-900); Neutrophils Absolute Auto 4400 /uL (1500-7000); Neutrophils Percent Auto 61.8 % (50-75); Platelet Count 208 X10^3/uL (150-400); Red Blood Cell Count 4.42 X10^6/uL (4.5-5.9); Red Cell Distribution Width 13.7 % (11.6-14.8); White Blood Cell Count 7.1 X10^3/uL (4.5-11.0)
[2024-06-01 13:59] LABS: Alanine Aminotransferase 32 IU/L (<50); Albumin 4.2 g/dL (3.5-5.0); Albumin Globulin Ratio 1.6 (1.0-2.8); Alkaline Phosphatase 64 U/L (38-126); Aspartate Aminotransferase 35 IU/L (17-59); BUN Creatinine Ratio 23.5 (6-22); Bilirubin Total 0.7 mg/dL (0.2-1.3); Blood Urea Nitrogen 23 mg/dL (9-20); Calcium 9.4 mg/dL (8.4-10.2); Carbon Dioxide 30 mmol/L (22-32); Chloride 101 mmol/L (98-107); Estimated Glomerular Filt Rate > 60 mL/min (>60); Globulin 2.6 g/dL (1.7-4.1); Glucose 115 mg/dL (80-110); HEMOLYSIS < 15 (0-50); Magnesium 2.1 mg/dL (1.6-2.3); Potassium 4.4 mmol/L (3.4-5.1); Sodium 137 mmol/L (137-145); Total Protein 6.8 g/dL (6.3-8.2)
[2024-06-01 14:28] LABS: TSH w/ Reflex to FT4 2.04 uIU/mL (0.47-4.68)
== END ==
LOC: LAB 12:19
PROVIDERS: PCP Family Medicine; Referring Provider Nurse Practitioner Family; Visit Provider Nurse Practitioner Family
DX: R42 Dizziness and giddiness (principal)
CPT/HCPCS: 36415; 80053; 83735; 84443; 85025

== ENCOUNTER → 2024-06-02 06:45 | Outpatient (CLI) | payer MEDICARE, SELFPAY ==
--- NOTE | 2024-06-02 06:46 | DI.ECHO.S_ITS ---
+ + [place] [facility] : [facility] : : [place] : : [place] : : [id number] : : Phone: [phone] Echocardiogram Report + + :Name: DAKOTA SINGH Study Date: 06/02/2024 Height: 70 in : :[facility] ReadingLocation: Weight: 165 lb : : Gender: Male BSA: 1.9 m2 : :: 1945 Age: 78 yrs BP: 126/81 mmHg: :Reason For Study: BRADYCARDIA : :Ordering Physician: KARIN, : :JUAN Performed By: John Joseph : :Referring: JUAN FRAZIER : + + Interpretation Summary Normal sinus rhythm with frequent PACs in a pattern of bigeminy. Normal LV size and wall thickness. Normal wall motion and LV systolic function. Ejection fraction 60-65%. Mild left atrial enlargement; otherwise normal chamber sizes. No significant valvular abnormalities. Compared to prior echo 08/29/2019 PAC's are new. Procedure: A two-dimensional transthoracic echocardiogram with color flow and Doppler was performed. The study quality was technically adequate. Comparison is made with the echocardiogram of 08/29/2019. The heart rate ranged between 58-71 bpm during the study. Rhythm in and out of Bigeminy. Left Ventricle: The left ventricle is normal in size and wall thickness. The ejection fraction is estimated to be 55-60%. Diastolic function could not be accurately assessed due to contradictory data. E/e' mostly <15 but occasionally measurements suggest low e' velocity. PV PW Doppler was not performed. Right Ventricle: The right ventricle is normal size. The right ventricular systolic function is normal. Atria: The left atrial size is normal. Right atrial size is normal. The interatrial septum grossly appears intact with no obvious evidence for an atrial septal defect. Mitral Valve: The mitral valve is normal. There is no mitral valve stenosis. There is mild mitral regurgitation. Aortic Valve: The aortic valve is trileaflet. There is no aortic valve stenosis. There is mild aortic regurgitation. Tricuspid Valve: The tricuspid valve is normal. There is no tricuspid stenosis. There is mild tricuspid regurgitation. The right ventricular systolic pressure is estimated to be at least 40.9 mmHg based on an estimated right atrial pressure of 8 mm Hg. Pulmonic Valve: The pulmonic valve is not well seen, but is grossly normal. There is no pulmonic valvular stenosis. There is trace pulmonic regurgitation. Great Vessels: The aortic root is normal size. The dimensions of the ascending aorta are normal. The IVC is dilated (diameter is greater than 2.1 cm) yet it collapses greater than 50% with a sniff. This suggests a right atrial pressure of 8 mm Hg. Pericardium/ Pleura There is no pericardial effusion. There is no pleural effusion. MMode/2D Measurements & Calculations LVIDd: 4.8 cm LVOT diam: 2.0 cm LVIDs: 2.9 cm Ao root diam: 3.3 cm FS: 39.0 % asc Aorta Diam: 3.3 cm IVSd: 0.89 cm Ao Arch Diam (Prox Trans): 2.2 cm LVPWd: 0.95 cm LV atwood. diameter/BSA (cm/m^2): 2.5 LV sys. diameter/BSA (cm/m^2): 1.5 LA A2 area: 19.3 cm2 RA long axis: 4.5 cm LA A4 area: 23.3 cm2 RA area: 11.5 cm2 LA length (vol): 5.5 cm RA vol: 25.1 ml LA vol: 68.8 ml RA : 13.1 ml/m2 LA vol index: 35.8 ml/m2 IVC diam: 2.4 cm RVD1 (basal): 3.4 cm RVD2 (mid): 2.6 cm TAPSE: 2.4 cm Doppler Measurements & Calculations Ao V2 max: 123.8 cm/sec LVOT Max Tong: 85.5 cm/sec Ao V2 mean: 91.5 cm/sec LV V1 max P.9 mmHg Ao max P.1 mmHg LV V1 VTI: 20.5 cm Ao mean P.7 mmHg ANN(I,D): 2.1 cm2 Ao V2 VTI: 29.3 cm ANN(V,D): 2.1 cm2 sev ratio: 0.70 ANN indexed to BSA (cm^2/m^2): 1.1 MV E max tong: 82.4 cm/sec TR max tong: 286.6 cm/sec MV A max tong: 52.2 cm/sec TR max P.9 mmHg MV E/A: 1.6 PA V2 max: 125.0 cm/sec Med Peak E' Tong: 5.5 cm/sec PA V2 mean: 92.8 cm/sec E/E' med: 14.9 PA mean P.8 mmHg Lat Peak E' Tong: 6.3 cm/sec PA pr(Accel): 35.6 mmHg E/E' lat: 13.2 E/e' average: 14.0 MV dec time: 0.13 sec SV(LVOT): 62.2 ml Electronically signed by: Anju Aguirre M.D. on Reading Physician:06/02/2024 08:30 AM
== END ==
PROVIDERS: PCP Family Medicine; Referring Provider Nurse Practitioner Family; Visit Provider Nurse Practitioner Family
DX: I08.3 Combined rheumatic disorders of mitral, aortic and tricuspid valves (principal); R42 Dizziness and giddiness; I48.0 Paroxysmal atrial fibrillation; R00.1 Bradycardia, unspecified
CPT/HCPCS: 93306

== ENCOUNTER → 2024-06-07 07:45 | Outpatient (CLI) | payer MEDICARE, SELFPAY | LOC: CAR 07:45 | PROVIDERS: PCP Family Medicine; Referring Provider Nurse Practitioner Family; Visit Provider Nurse Practitioner Family | DX: R00.2 Palpitations (principal); I48.91 Unspecified atrial fibrillation; I48.92 Unspecified atrial flutter; R00.1 Bradycardia, unspecified | CPT/HCPCS: 93242 ==

== ENCOUNTER → 2024-06-16 | Outpatient (CLI) | payer MEDICARE, SELFPAY ==
--- NOTE | 2024-06-19 22:18 | DI.NM.S_ITS ---
DATE OF SERVICE: 06/16/2024 NUCLEAR CARDIOLOGY MYOCARDIAL PERFUSION STUDY PROCEDURE: Exercise treadmill stress and rest myocardial perfusion imaging with gating to assess ejection fraction and regional wall motion. ORDERING PROVIDER: BENITO Prado. INDICATIONS: The patient is a 78-year-old male with a history of atrial fibrillation status post ablation, who now presents with episodic dizziness and malaise with frequent PVCs. CARDIAC STRESS: The patient was able to exercise for 7 minutes and 22 seconds on a standard [place] protocol suggesting excellent exercise capacity with an ANNETTE of -33%, achieving 10.1 METs. He had a normal heart rate and blood pressure response to exercise, achieving a maximum heart rate of 138 bpm (98% of his predicted maximum). He had no chest discomfort or other anginal symptoms. His resting ECG showed sinus rhythm with normal ST segments. With stress, there were no significant ST-segment shifts. He had occasional isolated PVCs without complex ventricular ectopy. At 6 minutes 20 seconds of exercise at a heart rate of 122 bpm, 25.5 mCi of technetium-99m Myoview was injected and he was imaged 15 minutes later using a gated SPECT acquisition protocol. Three days prior while at rest, he had been injected with 26.3 mCi of technetium-99m Myoview was injected and imaged 15 minutes later, again using a gated SPECT acquisition protocol. FINDINGS: RAW DATA: There is fairly good myocardial tracer uptake. The lung/heart ratio is normal at 0.15 with a normal TID ratio of 0.98. GATED STUDY: Quantitated gated SPECT: Post-stress ejection fraction is estimated at 81% without any focal wall motion abnormality. Specifically, the inferior wall has normal contractility. The resting ejection fraction is estimated 78% with a normal resting end-diastolic volume of 83 mL. MYOCARDIAL PERFUSION SCAN: The post-stress supine images show a fairly normal myocardial perfusion pattern although with a subtle perfusion defect in the inferior wall, extending into the distal inferolateral wall, but this defect completely resolves on the prone images suggesting that it most likely reflects diaphragmatic attenuation artifact. The resting images show a similar perfusion pattern without any significant improvement in the inferior perfusion defect. IMPRESSION: 1. Normal myocardial perfusion study. 2. Subtle, fixed inferior perfusion defect that resolves on prone imaging, consistent with diaphragmatic attenuation artifact. There is no compelling evidence for any myocardial ischemia or previous myocardial infarction. 3. Normal left ventricular systolic function without any focal wall motion abnormality and normal left ventricular volumes. 4. Excellent exercise capacity without angina or ECG evidence of ischemia. He remained in sinus rhythm with rare isolated PVCs but no complex ventricular ectopy. Heron Rodgers - DEL/carli/KIM doc#: [id number]/job#: [id number] dd: 06/19/2024 17:04:00 dt: 06/19/2024 21:59:00 DICTATING MD/COPIES TO: Johnny Mckeon MD; BENITO Prado COPIES MNE: ANDRE; ; BENITO Prado
== END ==
PROVIDERS: PCP Family Medicine; Referring Provider Nurse Practitioner Family; Visit Provider Nurse Practitioner Family
DX: R42 Dizziness and giddiness (principal); R06.02 Shortness of breath; R00.1 Bradycardia, unspecified
CPT/HCPCS: 78452; 93017; A9502

== ENCOUNTER 2024-08-08 07:13 | Day surgery (SDC) | payer MEDICARE, SELFPAY ==
--- NOTE | 2024-08-08 | PATH_ITS ---
[facility] Accession Number: [id number] No. of containers..03 Tissue . 01 Material submitted: . PART A: colon - TRANSVERSE COLON POLYP PART B: colon - ASCENDING COLON POLYP PART C: colon - SIGMOID POLYP . 01 Diagnosis: A. TRANSVERSE COLON POLYP, BIOPSY: Minute fragment of plant/food material. No colonic mucosa identified. . B. ASCENDING COLON POLYP, BIOPSY: Colonic mucosa with benign lymphoid aggregates. . C. SIGMOID COLON POLYP, BIOPSY: Colonic mucosa with focal mucosal hyperplasia, suggestive of early development of hyperplastic polyp. MRV 08/09/2024 1502 Local . 01 Electronically signed: . Lizette Allison MD, Pathologist NPI- [id number] . 01 Gross description: . Part A: TRANSVERSE COLON POLYP: Received in formalin is 1 fragment(s) of galan, soft tissue measuring 0.2 x 0.1 x 0.1 cm submitted entirely in 1 cassette(s) Part B: ASCENDING COLON POLYP: Received in formalin are 3 fragment(s) of galan, soft tissue measuring 0.3 x 0.2 x 0.2 cm to 0.5 x 0.2 x 0.2 cm submitted entirely in 1 cassette(s) Part C: SIGMOID POLYP: Received in formalin is 1 fragment(s) of galan, soft tissue measuring 0.5 x 0.2 x 0.2 cm submitted entirely in 1 cassette(s) /AUDI 08/08/2024 2353 Local . 01 Pathologist provided ICD-10: K63.89, D12.5 . 01 CPT . 597716, 244062, 025240 Specimen Comment: A courtesy copy of this report has been sent to [phone] Performed at: [address] [place] [address] [address], [place], [place] [id number] MD Roderick Couch MD Phone: [phone]
[2024-08-08 07:31] VITALS: BP 150/89; PULSE 79; RESP 12; TEMP 36.8; O2SAT 100
--- NOTE | 2024-08-08 08:07 | P.HP_ITS ---
History of Present Illness History of Present Illness Date Patient Seen: 08/08/24 Time Patient Seen: 08:08 Chief complaint: Colonoscopy Narrative: 78-year-old male personal history of colonic polyps here for screening colonoscopy. Last colonoscopy 2020 demonstrated several tubular adenomas. No abdominal concerns today. No family history of colon cancer. [facility] Medical History Dizziness History of blood clots Arthritis Enlarged prostate Atrial fibrillation HTN (hypertension) Diverticulosis Factor 5 Leiden mutation, heterozygous Intermittent atrial fibrillation Surgical History History of radiofrequency ablation procedure for cardiac arrhythmia S/P right unicompartmental knee replacement (~2005) Hx of transurethral resection of prostate (~1993) History of open reduction and internal fixation (ORIF) procedure (~1984) History of open reduction and internal fixation (ORIF) procedure (~1982) History of tonsillectomy and adenoidectomy H/O left inguinal hernia repair (~2000) Status post ablation of atrial fibrillation Social History marital status: household members: spouse lives independently: Yes occupational status: previously employed Smoking Status: Never smoker alcohol intake: current substance use type: does not use Meds Home Medications and Allergies Home Medications Medication Instructions Recorded Confirmed Type acyclovir 400 mg tablet 400 mg PO DAILY #90 tabs 06/17/23 07/06/24 Rx lisinopril 20 1 tab PO DAILY #90 tabs 06/17/23 08/08/24 Rx mg-hydrochlorothiazide 25 mg tablet epinephrine 0.3 mg/0.3 mL 0.3 mg (0.3 mL) IM ONCE #2 ea 07/15/23 07/06/24 Rx injection, auto-injector (EpiPen 2-Dilshad) acetaminophen 325 mg capsule 650 mg (2 x 325 mg) PO QID PRN 10/06/23 07/06/24 Rx (Tylenol) pain #60 caps metoprolol succinate 50 mg 50 mg PO DAILY #90 tabs 03/27/24 08/08/24 Rx tablet,extended release 24 hr atorvastatin 40 mg tablet 40 mg PO HS #90 tabs 05/22/24 07/06/24 Rx warfarin 5 mg tablet See Rx Instructions .Route 05/22/24 08/08/24 Rx .COMPLEX #180 tabs nirmatrelvir 300 mg (150 mg See Rx Instructions PO .COMPLEX 07/06/24 07/06/24 Rx x2)-ritonavir 100 mg tablet,dose #30 ea pack (Paxlovid) sodium,potassium,mag sulfates 17.5 See Rx Instructions PO .COMPLEX 07/11/24 Rx gram-3.13 gram-1.6 gram oral soln #354 mL (Suprep Bowel Prep Kit) Allergies Allergy/AdvReac Type Severity Reaction Status Date / Time No Known Drug Allergies Allergy Verified 08/08/24 07:26 Exam Vital Signs (past 8 hours): - 08/08/24 07:31 Temperature 98.3 F Pulse Rate 79 Respiratory Rate 12 Blood Pressure 150/89 H Pulse Oximetry 100 Oxygen Delivery Method Room Air Oxygen Delivery Method Room Air Narrative Exam Narrative: General adult man alert oriented no acute distress Chest nonlabored respiration Extremities warm well perfused Assessment & Plan Assessment & Plan narrative: The patient requires colorectal screening and colonoscopy is recommended. Technical details were discussed. Risks, benefits, alternatives explained. Risks including but not limited to myocardial infarction, aspiration, bleeding, pain, missed lesion, incomplete examination, need for further radiographic studies, intestinal injury, and need for major abdominal surgery were discussed. All questions were answered to their satisfaction, and they are in agreement with this plan. Time-Based Coding :: [TOTAL MINUTES] spent with patient and on the chart (including review of chart, obtaining history, exam, reviewing outside data, placing orders, documenting exam and treatment plan, and counseling patient) on [DATE].
[2024-08-08 08:46] VITALS: BP 100/67; PULSE 70; RESP 13; TEMP 37.1; O2SAT 96
--- NOTE | 2024-08-08 08:50 | P.OP.COLON_ITS ---
Operative Date/Time/Diagnoses Date of procedure: 08/08/24 Time of procedure: 08:50 Pre-op diagnosis: Personal history of colonic polyps Post-op diagnosis: other (Colonic polyps x3) Procedure & Clinicians Study performed: Colonoscopy and polypectomy Same procedure as scheduled: Yes Indications: Personal history of colonic polyps Colorectal screening Surgeon: Jerzy Montenegro Procedure Notes Procedure in detail: The history and physical was performed/updated and the patient is ASA class is 2. The procedure was discussed in detail with the patient. Potential risks complications including infection, bleeding, missed diagnosis, perforation, need for surgery, and were explained. Their questions were answered and informed consent was obtained. Patient was brought to the procedure room and placed standard monitoring equipment. The patient's vital signs were monitored continuously throughout the entire procedure. Prior to starting time-out was performed. The patient was placed in the left lateral recumbent position. Procedural sedation was administered by anesthesia. Examination began with a thorough inspection of the perianal area there was no evidence of fissures, fistulae, external hemorrhoids or cutaneous malignancy. The colonoscopy scope was then placed into the anal canal and was advanced to the cecum, which was identified by the ileocecal valve, the appendiceal orifice and the confluence of the taenia. The scope was then slowly withdrawn examining colon thoroughly in all directions, irrigating it of any residual stool. The scope was retroflexed within the rectum The patient tolerated the procedure well. They will be discharged once criteria are met. The prep was of good/excellent quality. The withdrawl time was 12 minutes. FINDINGS * Transverse colon 5 mm polyp removed with cold snare and entirety. * Ascending colon 3 mm polyp removed with biopsy forceps * Sigmoid colon 3 mm polyp removed with biopsy forceps * Soriano diverticulosis Specimen(s): other (Transverse, ascending, sigmoid colonic polyps) Impression: Colonic polyps x3 Post-procedure Recommendations: High fiber diet Plan for aftercare: Follow up dependent on pathology findings Disposition: same day surgery
[2024-08-08 08:51] VITALS: BP 112/68; PULSE 72; RESP 14; O2SAT 98
[2024-08-08 08:56] VITALS: BP 118/64; PULSE 78; RESP 14; O2SAT 96
[2024-08-08 09:00] VITALS: BP 118/79; PULSE 68; RESP 12; O2SAT 100
== END 2024-08-08 09:32 | disposition home or self-care (01) ==
PROVIDERS: PCP Family Medicine; Referring Provider Surgery; Visit Provider Surgery
PROC: 0DJD8ZZ Inspection of Lower Intestinal Tract, Via Natural or Artificial Opening Endoscopic (ICD-10-PCS; CPT 45378; principal; 2024-08-08 08:15)
DX: Z12.11 Encounter for screening for malignant neoplasm of colon (principal); Z86.0100 Personal history of colon polyps, unspecified; K57.30 Diverticulosis of large intestine without perforation or abscess without bleeding; K63.5 Polyp of colon
CPT/HCPCS: 45385; 45380; J2704

== ENCOUNTER → 2024-10-15 14:13 | Outpatient (CLI) | payer MEDICARE, SELFPAY ==
--- NOTE | 2024-10-15 14:18 | DI.MRI.S_ITS ---
PROCEDURE: MR HEAD/BRAIN WO/W CON INDICATIONS: SUDDEN HEARING LOSS,VERTIGO TECHNIQUE: Noncontrast axial T1 spin echo, axial T2 fast spin echo, sagittal and axial FLAIR, coronal T2 fast spin echo, axial gradient echo, axial diffusion and ADC through the brain. After the administration of contrast, axial and coronal and sagittal 3D VIBE or T1 spin echo with fat saturation through the brain. COMPARISON: None. FINDINGS: Image quality: Excellent. CSF Spaces: Basal cisterns are patent. No extra-axial fluid collections. Ventricles are normal in size and shape. Brain: No midline shift. No intracranial bleeds or masses. No abnormal intracranial enhancement. The brainstem appears normal. Diffusion-weighted images demonstrate no acute infarct. No chronic ischemic insults. Normal intravascular flow voids are present. Minimal white matter changes are present normal for age. Cerebellar pontine angle is unremarkable with no masses identified. Seventh and 8th cranial nerves are well identified with no evidence of an acoustic neuroma or meningioma. Skull and face: Calvarial marrow is normal in signal. Orbits appear normal. Sinuses: There is total opacification of the right maxillary sinus. IMPRESSION: No evidence of an acoustic neuroma or mass. Severe right maxillary sinusitis. Dictated by: Sameera Dutton M.D. on 10/16/2024 at 9:14 Approved by: Sameera Dutton M.D. on 10/16/2024 at 9:35
== END ==
PROVIDERS: PCP Family Medicine; Referring Provider Otolaryngology; Visit Provider Otolaryngology
DX: H91.21 Sudden idiopathic hearing loss, right ear (principal); H90.3 Sensorineural hearing loss, bilateral; R42 Dizziness and giddiness; J32.0 Chronic maxillary sinusitis
CPT/HCPCS: 70553; A9579

== ENCOUNTER → 2024-11-24 09:09 | Outpatient (CLI) | payer MEDICARE, SELFPAY ==
--- NOTE | 2024-11-24 09:10 | DI.CT.S_ITS ---
PROCEDURE: CT SINUS SCREEN WO CON INDICATIONS: CHRONIC RIGHT MAXILLARY SINUSITIS TECHNIQUE: Noncontrast 3.0 mm axial images acquired from the frontal sinuses to the mid-sella, with coronal and sagittal reformats. For radiation dose reduction, the following was used: automated exposure control, adjustment of mA and/or kV according to patient size. COMPARISON: [facility], MR, MR HEAD/BRAIN WO/W CON, 10/15/2024, 14:30. FINDINGS: Image quality: Excellent. Maxillary Sinuses: There is complete opacification of the right maxillary sinus. Minimal mucosal thickening can be seen involving the inferior left maxillary sinus. The superior medial valentin of the maxillary sinuses are demineralized, right worse than left. Ethmoid Air Cells: No bony remodeling or destruction. There is mild mucosal thickening within the ethmoid air cells. Sphenoid Sinuses: No bony remodeling or destruction. There is a mucous retention cyst seen involving the anterior aspect of the right sphenoid sinus. Frontal Sinuses: No bony remodeling or destruction. Mild mucosal thickening can be seen involving the inferior medial right frontal sinus. Ostiomeatal Complexes: The right ostiomeatal complex is completely opacified. The left ostiomeatal complex is constitutionally narrowed, yet patent. Bilateral Lester cells are seen. The ostiomeatal complexes are demineralized. Miscellaneous: Visualized intra-orbital contents are normal. No shahbaz bullosa or paradoxical turbinate curvature. There is mild rightward nasal septal deviation. IMPRESSION: The right maxillary sinus is completely opacified. Mild scattered mucosal thickening can be seen elsewhere within the paranasal sinuses. The right ostiomeatal complex is completely opacified. Areas of bony demineralization are seen, which are consistent with chronic sinusitis. Dictated by: Eduardo Walton M.D. on 11/24/2024 at 11:57 Approved by: Eduardo Walton M.D. on 11/24/2024 at 12:00
== END ==
PROVIDERS: PCP Family Medicine; Referring Provider Otolaryngology; Visit Provider Otolaryngology
DX: J32.8 Other chronic sinusitis (principal); J34.1 Cyst and mucocele of nose and nasal sinus
CPT/HCPCS: 70486

== ENCOUNTER → 2025-06-01 07:34 | Outpatient (CLI) | payer MEDICARE, SELFPAY ==
--- NOTE | 2025-06-01 07:35 | DI.CT.S_ITS ---
PROCEDURE: CT SINUS SCREEN WO CON INDICATIONS: Facial pain and chronic right maxillary sinusitis TECHNIQUE: Noncontrast 3.0 mm axial images acquired from the frontal sinuses to the mid- sella, with coronal and sagittal reformats. For radiation dose reduction, the following was used: automated exposure control, adjustment of mA and/or kV according to patient size. COMPARISON: [facility], CT, CT SINUS SCREEN WO CON, 11/24/2024, 9:23. [facility], MR, MR HEAD/BRAIN WO/W CON, 10/15/2024, 14:30. FINDINGS: Image quality: Excellent. Maxillary Sinuses: The right maxillary sinus is nearly completely opacified. There is mild mucosal thickening within the inferior left maxillary sinus. The superior medial valentin of the maxillary sinuses are demineralized. Ethmoid Air Cells: No bony remodeling or destruction. Mild mucosal thickening can be seen within the ethmoid air cells. Sphenoid Sinuses: No bony remodeling or destruction. Minimal mucosal thickening can be seen anteriorly and on the right. Frontal Sinuses: No bony remodeling or destruction. Mild mucosal thickening can be seen inferiorly and on the right. Ostiomeatal Complexes: The ostiomeatal complexes are patent, yet they are constitutionally narrowed, with bilateral Lester cells. The right ostiomeatal complex is nearly completely occluded by soft tissue thickening. Miscellaneous: Visualized intra-orbital contents are normal. No shahbaz bullosa or paradoxical turbinate curvature. There is mild rightward nasal septal deviation. IMPRESSION: Focal significant right maxillary sinus disease seen. Narrowed ostiomeatal complexes, with bilateral Lester cells. Areas of bony demineralization are seen, which are consistent with chronic sinusitis. The appearance is similar to the prior. Dictated by: Eduardo Walton M.D. on 06/01/2025 at 11:39 Approved by: Eduardo Walton M.D. on 06/01/2025 at 11:43
== END ==
PROVIDERS: PCP Family Medicine; Referring Provider Otolaryngology; Visit Provider Otolaryngology
DX: J32.0 Chronic maxillary sinusitis (principal); R51.9 Headache, unspecified
CPT/HCPCS: 70486